=== PATIENT | female | born 1995 | race Caucasian/White ===

== ENCOUNTER 2016-12-28 07:44 | Day surgery (SDC) | payer BC ==
[~2016-12-28 07:44] MED LIST: LIDOCAINE HCL 1%/EPI 1:100,000 - 20 ML VIAL ONE; LIDOCAINE MPF 2% - 5 ML (20 MG/1 ML) ONE; LIDOCAINE W/ SODIUM BICARB 0.5 ML SYR ONE; Lactated Ringers 1,000 ML PRIMARY IV ONE; MIDAZOLAM 5 MG/1 ML ONE; ROCURONIUM 10 MG/1 ML - 5 ML VIAL IVP ONE; SODIUM BICARBONATE 8.4% - 50 ML VIAL ONE; fentaNYL Inj 250 MCG/5 ML VIAL ONE
[2016-12-28 08:02] LABS: URINE SPECIFIC GRAVITY - MAN 1.024
[2016-12-28] MEDS ORDERED: BUPIVACAINE 0.5% W/ EPI - 10 ML VIAL ONE (09:07)
[2016-12-28] MEDS ORDERED: KETOROLAC 30 MG/1 ML VIAL ONE (09:20)
--- NOTE | 2016-12-28 09:35 | GEN.OPNOTE ---
Operative Note Surgery Date: 12/28/16 Preoperative Diagnosis: Large lipoma left shoulder. Postoperative Diagnosis: Same. Procedure: Excision 7 x 5 x 2.5 cm lipoma left posterior shoulder. Surgeon: Rex Bundy MD Anesthesia Provider: Oli Valentine CRNA Anesthesia Type: Local (1% Xylocaine with epinephrine and bicarbonate per Rex Bundy M.D.), MAC Estimated Blood Loss (mL): 2 Fluids: 600 mL of crystalloid. 15 mg of IV Toradol at the end of the procedure. Pathology: Specimen to pathology. Indications: Large and symptomatic lipoma left posterior shoulder. Findings: Lipoma. Complications: None. Operative Summary: The patient was taken to the operating room and placed on the operating table in the supine position. Following adequate IV sedation the patient was turned in a right lateral decubitus position. The posterior shoulder was prepped and draped in a sterile fashion. A surgical timeout was done. The incision site was marked on the skin. The area was infiltrated with 1% Xylocaine with epinephrine and sodium bicarbonate. Deep infiltration was also done. An incision was made. The subcutaneous tissue and superficial fascia was transected with electrocautery until we were down to the lipoma. The entire lipoma was enucleated. There was a feeding vessel that was clamped divided and ligated with 2-0 Vicryl. Hemostasis was assured. The wound and subcutaneous tissues were infiltrated with half percent Marcaine with epinephrine. The fascia was closed with 3-0 Vicryl. The deep dermis was closed with running 3-0 Vicryl. The skin was closed with running 4-0 Prolene followed by Mastisol, Steri-Strips, and a sterile dressing. The patient tolerated the entire procedure well without complication. She was taken to the PACU in stable condition. All counts were correct.
[2016-12-28] MEDS ORDERED: HYDROcodone-APAP 5 MG -325 MG TABLET PO PRN (09:37)
[2016-12-28 11:17] VITALS: TEMP 97.6
[2016-12-28 11:22] VITALS: RESP 16
== END 2016-12-28 11:05 | disposition home or self-care (01) ==
LOC: SDSC 07:44
PROVIDERS: ATTEND Surgery
DX: D17.22 Benign lipomatous neoplasm of skin and subcutaneous tissue of left arm (principal)
CPT/HCPCS: 23071; 84703; J1885; J2704; J3010; J2001; J2250; J7120